=== PATIENT | male | born 1970 | race Caucasian/White ===

== ENCOUNTER 2016-11-06 20:16 | Inpatient (IN) | payer BC, MEDICARE ==
--- NOTE | ~2016-11-06 | OP ---
Record Of Operation [facility] [address] [place]. [address] NAME: EVERT ZEPEDA : 70 STATUS : ADM IN PAT#: [id number] AGE: 46 ADM/REG DATE : 11/06/16 MR#: [id number] REPORT SERV DATE: 11/06/16 DICTATED BY: ALPHONSO CASTRO JR. DATE: 11/06/16 REPORT STATUS : Draft TRANSCRIBED BY: MODVania DATE: 11/06/16 DATE OF PROCEDURE: 11/06/2016 PREOPERATIVE DIAGNOSES: Chronic pain syndrome, multiple previous back fusions, implantation of nerve stimulator, chronic obstructive pulmonary disease with persistent tobacco use, left empyema with trapped lung. POSTOPERATIVE DIAGNOSES: Chronic pain syndrome, multiple previous back fusions, implantation of nerve stimulator, chronic obstructive pulmonary disease with persistent tobacco use, left empyema with trapped lung. NAME OF OPERATION: Bronchoscopy, left thoracoscopy with complete decortication, intercostal nerve block. SURGEON: Alphonso Castro M.D. [employer]: Sharath Curry. ANESTHESIA: [facility]. FINDINGS: The patient was noted to have a parapneumonic effusion with some purulent material in his left chest. This fluid was sent for cultures. We were able to get the lung completely decorticated with good re-expansion. There was a mass in his left lower lobe just at the fissure. It is difficult to tell whether this was an area of pneumonia or an old scar infection or a lung cancer. In this acute setting, we elected not to try to biopsy remove this. He will need a short-term CT scan postoperatively to further evaluate this abnormality. Given all the information it was difficult to tell at this point time. There are no endobronchial lesions other than significant mucus plugs, as expected. DETAILS OF OPERATION: After adequate general anesthesia, the patient was intubated. Bronchoscopy was performed noting no endobronchial masses. There were significant mucous secretions which were evacuated. A left-sided double-lumen endotracheal tube was then placed. The patient was then positioned in the right lateral decubitus position. The left chest was prepped and draped in routine sterile fashion. A small incision was made overlying the lower intercostal space, through the single incision site, the above findings were noted. The fluid loculations were broken up. The fluid was sent for cultures. The lung peel was completely decorticated over the both lobes. In the process there was a firm area in the left lower lobe right at the fissure. This was medially toward the heart. It was difficult to tell whether this was an abscess or an old lung infection. It had more of a chronic nature and was very firm. It did not have the findings of the lung cancer based on just the visceral surface of the lung. Given all the acute inflammation it is difficult to tell. A decision was made not to biopsy remove this. The chest was thoroughly irrigated with multiple liters of normal saline solution. An intercostal nerve block was performed. A 32-Cypriot chest tube was placed. The lung was reinflated. The trocar sites were closed with running Vicryl sutures. The skin was closed with running monofilament suture. A Dermabond dressing was applied. The procedure was terminated at this point. The patient Record Of [address] [place]. [address] NAME: EVERT ZEPEDA : 70 STATUS : ADM IN [facility]#: [id number] AGE: 46 ADM/REG DATE : 11/06/16 MR#: [id number] REPORT SERV DATE: 11/06/16 DICTATED BY: ALPHONSO CASTRO JR. DATE: 11/06/16 REPORT STATUS : Draft TRANSCRIBED BY: MODL DATE: 11/06/16 tolerated the procedure well and taken back to intensive care unit in stable condition. He remained intubated. JACQUELYN/JADE Alphonso Castro Jr., M.D. / [id number] CC: Sarika Lemus Jr., M.D.
--- NOTE | ~2016-11-06 | HP ---
History And Physical [id number] [place]. [address] NAME: EVERT ZEPEDA : 70 STATUS : ADM IN [facility]#: [id number] AGE: 46 ADM/REG DATE : 11/06/16 MR#: [id number] REPORT SERV DATE: 11/07/16 DICTATED BY: ALPHONSO HOLBROOK JR. DATE: 11/06/16 REPORT STATUS : Draft TRANSCRIBED BY: MODVania DATE: 11/06/16 DATE OF ADMISSION: 11/06/2016 BRIEF HISTORY: This 46-year-old male who three days ago began having left-sided chest pain, fevers, and productive cough. He was initially seen in outpatient clinic and treated for pneumonia. The fevers persist, which led to presentation to the hospital, where he was admitted to [facility]. He was noted to have a large left empyema. Thoracentesis was performed demonstrating low pH on the fluid. He is being transferred to [facility] and admitted for a left decortication. PAST MEDICAL HISTORY: Significant for multiple back surgeries along with implantation of a nerve stimulator. He has had previous appendectomy. He has had a previous elbow drain for staph, knee surgery. He has chronic pain syndrome, depression, hypertension, and history of MRSA. MEDICATIONS: Lexapro, Lyrica, methadone, and oxycodone. ALLERGIES: COMPAZINE, CONTRAST MEDIA, IODINE, AND SHELLFISH. SOCIAL HISTORY: The patient smokes at least half pack to one pack per day for the last 30 years. He denies regular alcohol use. FAMILY HISTORY: Significant for congestive heart failure and pneumonia. REVIEW OF SYSTEMS: Significant for the above-mentioned problems in history of present illness. Otherwise, all other systems negative. DATA: White blood cell count 22,000, hemoglobin 11.6, and platelets 467,000. Sodium 136, potassium 5.1, and creatinine 0.86. IMPRESSION: Left empyema with likely trapped lung. PLAN: We will plan on proceeding with urgent left thoracoscopy with decortication. The patient understands that he will likely remain intubated postoperatively. He also will have difficult time given his chronic pain syndrome. Risks, benefits, and expected outcome of the procedure were discussed with the patient. We will proceed on with surgery as soon as possible. HOLLY Alphonso Holbrook Jr., M.D. History And Physical [address] [address] NAME: EVERT ZEPEDA : 70 STATUS : ADM IN PAT#: [id number] AGE: 46 ADM/REG DATE : 11/06/16 MR#: [id number] REPORT SERV DATE: 11/07/16 DICTATED BY: ALPHONSO HOLBROOK JR. DATE: 11/06/16 REPORT STATUS : Draft TRANSCRIBED BY: MICHELLE DATE: 11/06/16 / [id number] CC: Alphonso Holbrook Jr., M.D.
--- NOTE | ~2016-11-06 | DS ---
Discharge Summary [facility] [address] [place]. [address] NAME: EVERT ZEPEDA : 70 STATUS : DIS IN PAT#: [id number] AGE: 46 ADM/REG DATE : 11/06/16 MR#: [id number] REPORT SERV DATE: 11/23/16 DICTATED BY: ALPHONSO CASTRO JR. DATE: 11/22/16 REPORT STATUS : Draft TRANSCRIBED BY: JADE DATE: 11/22/16 Data Collection from hospitalization DISCHARGE DIAGNOSES: 1. Chronic pain syndrome. 2. Multiple previous back fusions. 3. History of implantation of nerve stimulator. 4. Chronic obstructive pulmonary disease. 5. Persistent tobacco use. 6. Left empyema with trapped lung. 7. Hypertension. 8. Depression. 9. History of methicillin-resistant Staphylococcus aureus. CONSULTATION: Dr. Obed [place]. PROCEDURES PERFORMED: Bronchoscopy, left thoracoscopy with complete decortication, intercostal nerve block, 11/06/2016. MEDICATIONS: ProAir two puffs via inhaler as needed, Omnicef 300 mg twice a day, Lexapro 20 mg daily, Levaquin 750 mg daily, methadone 40 mg every 12 hours, Roxicodone 15 mg four times a day as needed, Lyrica 400 mg daily and 200 mg at bedtime, Phenergan 25 mg every six hours as needed, testosterone one dose IM every 21 days as instructed. CONDITION AT DISCHARGE: Stable. DISPOSITION: The patient was discharged home on an 1800-calorie cardiac/diabetic diet with activities as instructed. He would follow up with me, 12/20/2016. HOSPITAL COURSE: This is a 46-year-old man, who about three days prior to this admission began to have chest pain that was left-sided. He also had fever and productive cough. He was initially seen in the outpatient clinic and treated for pneumonia. The fever persisted which led to presentation to the hospital and he had been admitted at [facility]. He was found to have a large left empyema. Thoracentesis demonstrated low pH in the fluid. He was transferred to [facility], and it was felt that he would need to undergo a left decortication. He was admitted at this time for further evaluation and treatment. Upon admission, he was taken to the operating room, where he underwent the above-mentioned procedure. He tolerated this well and there were no complications. On postop day one, he had minimal chest tube output, he had self extubated. Over the next couple of days, his wounds were clean, dry, and intact. He had decreased breath sounds in the bases. He was going to be transferred to the floor. He was seen by Dr. Obed Lake. The patient has a significant history of COPD with tobacco abuse and chronic pain syndrome. He is on a fairly high dose of methadone for pain control at home. He had been transferred from an outside hospital because of a complicated parapneumonic effusion. He underwent a thoracoscopy with good surgical results with good clearance of the complicated parapneumonic effusion. The patient had done relatively well with good oxygenation and good hemodynamics Discharge Summary [address] [address] NAME: EVERT ZEPEDA : 70 STATUS : DIS IN PAT#: [id number] AGE: 46 ADM/REG DATE : 11/06/16 MR#: [id number] REPORT SERV DATE: 11/23/16 DICTATED BY: ALPHONSO CASTRO JR. DATE: 11/22/16 REPORT STATUS : Draft TRANSCRIBED BY: JADE DATE: 11/22/16 afterwards that had quite significant sedation needs. He was now sedated and intubated on the mechanical ventilation. He was felt to have respiratory failure postoperatively with acute hypoxemic respiratory failure requiring intubation. He would remain on the ventilator for now and we would begin weaning efforts. He was on a good amount of sedation and had required a significant amount of fentanyl for comfort. He would be watched very carefully and we would start him on bronchodilator protocol. Discharge planning was performed. On 11/09/2016, chest x-ray showed no pneumothorax. There was some left basilar atelectasis. Cultures were pending. His wounds were clean, dry, and intact. His chest tube was discontinued. Discharge instructions were given. Due to his improved and stable condition, he was discharged home with the above-stated instructions. Information collected by: Sylvie Puga I submit the above information as my discharge summary. TAHIRA/JADE Alphonso Castro Jr., M.D. / [id number] CC: Sarika Lemus Jr., M.D.
--- NOTE | ~2016-11-06 | CN ---
Consultation Report [facility] [address] [place]. [address] NAME: EVERT DE LA GARZA : 70 STATUS : ADM IN PAT#: [id number] AGE: 46 ADM/REG DATE : 11/06/16 MR#: [id number] REPORT SERV DATE: 11/07/16 DICTATED BY: LISBETH HOGUE DATE: 11/07/16 REPORT STATUS : Draft TRANSCRIBED BY: MODL DATE: 11/07/16 CONSULTATION DATE OF CONSULTATION: Thank you for the opportunity to consult on this patient. I have discussed the case briefly with Dr. Ashish Castro after his surgery. HISTORY OF PRESENT ILLNESS: Mr. De La Garza is a 46-year-old man with significant history of COPD with tobacco abuse and chronic pain syndrome, on fairly high dose of methadone for pain control at home. He was transferred from an outside hospital because of a complicated parapneumonic effusion. He underwent thoracoscopy with good surgical results with good clearance of the complicated parapneumonic effusion. Reportedly, there was not as much pus. It is again just significant amount of fluid with adhesions. The patient did relatively well with good oxygenation and good hemodynamics afterwards, but had quite significant sedation needs. He is now sedated and intubated on mechanical ventilation. PAST MEDICAL HISTORY: Significant for chronic pain syndrome, on fairly high dose of methadone at home, tobacco abuse, chronic back pain. REVIEW OF SYSTEMS: I could not obtain review of 10 systems since he is intubated and sedated on mechanical ventilation. PHYSICAL EXAMINATION: GENERAL: He is sedated on the ventilator, in no acute respiratory distress. VITAL SIGNS: Heart rate 62 with blood pressure 110/60 and oxygen saturation was 98% on the ventilator. HEENT: Normocephalic and atraumatic. NECK: Supple. No lymphadenopathy and no JVD. CHEST: Symmetric with good expansion bilaterally. His lungs actually sound pretty good this morning. CARDIOVASCULAR: He has S1 and S2, which are regular in rate and rhythm. ABDOMEN: Benign. EXTREMITIES: He has no edema, no clubbing, no cyanosis. ASSESSMENT AND PLAN: Respiratory failure. The patient has postoperative respiratory failure, acute hypoxemic respiratory failure requiring intubation and will remain on the ventilator for now, though we will start weaning efforts. He is on good amount of sedation now and has required a significant amount of fentanyl for comfort, so therefore will need to be watched very carefully and we will start him on bronchodilator protocol. We appreciate the opportunity to participate in his care with you. Please do not hesitate to contact me if I could be of any further assistance. Consultation Report [id number] [address] [address] NAME: EVERT DE LA GARZA : 70 STATUS : ADM IN PAT#: [id number] AGE: 46 ADM/REG DATE : 11/06/16 MR#: [id number] REPORT SERV DATE: 11/07/16 DICTATED BY: LISBETH HOGUE DATE: 11/07/16 REPORT STATUS : Draft TRANSCRIBED BY: JADE DATE: 11/07/16 CB/JADE Lisbeth Hogue M.D. / [id number] CC: Hola Castro Jr., M.D.
[2016-11-06 20:45] LABS: BASOPHILS 0.2 %; BASOPHILS ABSOLUTE 0.05 10/3/uL (0.0-0.16); EOSINOPHILS 0.6 %; EOSINOPHILS ABSOLUTE 0.14 10/3/uL (0.0-0.53); HEMATOCRIT 32.2 % (40.0-51.0); HEMOGLOBIN 10.5 g/dL (13.6-17.8); IMMATURE GRANULOCYTES 0.7 %; IMMATURE GRANULOCYTES ABSOLUTE 0.16 10/3/uL (0.0-0.11); LYMPHOCYTES 6.6 %; LYMPHOCYTES ABSOLUTE 1.49 10/3/uL (0.67-4.30); MEAN PLATELET VOLUME 8.4 fL (9.2-13.0); MONOCYTES 9.3 %; MONOCYTES ABSOLUTE 2.09 10/3/uL (0.21-1.20); NEUTROPHILS 82.6 %; NEUTROPHILS ABSOLUTE 18.61 10/3/uL (2.02-8.40); RED CELL COUNT 3.67 10/6/uL (4.7-6.1)
[2016-11-06 20:47] LABS: MANUAL DIFF NO %; MEAN CORPUS HGB CONC 32.6 g/dL (32.0-36.0); MEAN CORPUSCULAR HEMOGLOB 28.6 pg (26.0-34.0); MEAN CORPUSCULAR VOLUME 87.7 fL (80-100); PLATELET COUNT 431 10/3/uL (150-400); WHITE BLOOD CELLS 22.5 10/3/uL (4.5-10.5)
[2016-11-06 20:55] LABS: INTERNATIONAL NORMAL RATI 1.3 UNITS (-)
[2016-11-06 20:59] LABS: PROTIME (NOT ORD) 16.3 SEC (12.0-14.5)
[2016-11-06 21:01] LABS: A/G RATIO 0.6 (0.7-1.9); ALBUMIN 2.3 G/DL (3.5-5.0); ALKALINE PHOSPHATASE 94 U/L (45-117); BUN (BLOOD UREA NITROGEN) 10 MG/DL (6-23); CALCIUM, SERUM 8.1 MG/DL (8.5-10.4); CHLORIDE, SERUM 102 MMOL/L (96-112); CO2 (CARBON DIOXIDE) 30 MMOL/L (24-34); CREATININE 0.71 MG/DL (0.70-1.30); GFR AFRICAN AMERICAN 130 ML/MIN (>=60); GFR NON AFRICAN AMERICAN 113 ML/MIN (>=60); GLOBULIN 3.9 G/DL (2.5-4.1); GLUCOSE, SERUM 117 MG/DL (60-99); POTASSIUM, SERUM 4.3 MMOL/L (3.5-5.3); SGOT(AST) 10 U/L (5-40); SGPT(ALT) 24 U/L (5-65); SODIUM, SERUM 138 MMOL/L (135-148); TOTAL BILIRUBIN 0.3 MG/DL (0-1.2); TOTAL PROTEIN 6.2 G/DL (6.0-8.5)
[2016-11-06 23:15] LABS: BE (BASE EXCESS) 4.7 MEQ/L (0 +/- 2.5); CARBOXYHEMOGLOBIN 0.3 % (0-3); HCO3 (ACTUAL BICARBONATE) 32.1 MEQ/L (23-27); HEMOBLOGIN CONTENT 11.6 G/DL (14-18); INSTRUMENT SERIAL # 11843; METHEMOGLOBIN 0.6 % (0-3); MODE CMV; O2 CONTENT 16.6 VOL% (18-24); OPERATOR ID 13415; PCO2 (CO2 TENSION) 63 MMHG (35-45); PO2 (O2 TENSION) 238 MMHG (79-93); SAMPLE Arterial; TIDAL VOLUME 700 ML; pH 7.33 (7.37-7.43)
[2016-11-07 01:00] LABS: HEMATOCRIT 32.6 % (40.0-51.0); HEMOGLOBIN 10.7 g/dL (13.6-17.8); MEAN CORPUS HGB CONC 32.8 g/dL (32.0-36.0); MEAN CORPUSCULAR HEMOGLOB 29.1 pg (26.0-34.0); MEAN CORPUSCULAR VOLUME 88.6 fL (80-100); MEAN PLATELET VOLUME 8.7 fL (9.2-13.0); PLATELET COUNT 417 10/3/uL (150-400); RBC DISTRIBUTION WIDTH 17.2 % (12.0-16.0); RED CELL COUNT 3.68 10/6/uL (4.7-6.1); WHITE BLOOD CELLS 24.7 10/3/uL (4.5-10.5)
[2016-11-07 01:01] LABS: MANUAL DIFF YES %
[2016-11-07 01:16] LABS: ANISOCYTOSIS 1+ (5-10/OIF) (0-5/OIF); BAND NEUTROPHILS 2 %; BASOPHILS 1 %; BASOPHILS ABSOLUTE (CALC) 0.25 10/3/uL (0.0-0.16); EOSINOPHILS 1 %; EOSINOPHILS ABSOLUTE (CALC) 0.25 10/3/uL (0.0-0.53); LYMPHOCYTES 4 %; LYMPHOCYTES ABSOLUTE (CALC) 0.99 10/3/uL (0.67-4.30); MONOCYTES 8 %; MONOCYTES ABSOLUTE (CALC) 1.98 10/3/uL (0.21-1.20); NEUTROPHILS ABSOLUTE (CALC) 21.24 10/3/uL (2.02-8.40); PLATELET ESTIMATE SLT INC (ADEQUATE); SEGMENTED NEUTROPHIL (0) 84 %; TOTAL NUCLEATED CELLS 100
[2016-11-07 01:18] LABS: BUN (BLOOD UREA NITROGEN) 9 MG/DL (6-23); CALCIUM, SERUM 7.6 MG/DL (8.5-10.4); CHLORIDE, SERUM 103 MMOL/L (96-112); CO2 (CARBON DIOXIDE) 32 MMOL/L (24-34); GFR AFRICAN AMERICAN 131 ML/MIN (>=60); GFR NON AFRICAN AMERICAN 113 ML/MIN (>=60); POTASSIUM, SERUM 4.9 MMOL/L (3.5-5.3); SODIUM, SERUM 134 MMOL/L (135-148)
[2016-11-07 01:19] LABS: GLUCOSE, SERUM 141 MG/DL (60-99)
[2016-11-07 03:55] LABS: ALLENS TEST Pos; BE (BASE EXCESS) 3.9 MEQ/L (0 +/- 2.5); CARBOXYHEMOGLOBIN 0.6 % (0-3); HCO3 (ACTUAL BICARBONATE) 28.3 MEQ/L (23-27); INSTRUMENT SERIAL # 11843; METHEMOGLOBIN 0.5 % (0-3); MODE CMV; O2 CONTENT 16.3 VOL% (18-24); OPERATOR ID 13415; PCO2 (CO2 TENSION) 42 MMHG (35-45); PO2 (O2 TENSION) 90 MMHG (79-93); SAMPLE Arterial; TIDAL VOLUME 700 ML; pH 7.45 (7.37-7.43)
[2016-11-07] MEDS ORDERED: METHATAB40 PO ×2 (08:15→17:42)
[2016-11-07] MEDS ORDERED: LEXAPRO20 PO ×2 (08:20→17:41)
[2016-11-07] MEDS ORDERED: LYRICA200 MG PO ×4 (08:21→20:12)
[2016-11-07] MEDS ORDERED: PR25 PO ×2 (08:22→17:42)
[2016-11-07] MEDS ORDERED: ROXICODONE15 MG PO ×2 (08:22→17:42)
[2016-11-07 10:48] LABS: HEMATOCRIT 34.2 % (40.0-51.0); MEAN CORPUS HGB CONC 32.2 g/dL (32.0-36.0); MEAN CORPUSCULAR HEMOGLOB 28.8 pg (26.0-34.0); MEAN CORPUSCULAR VOLUME 89.5 fL (80-100); MEAN PLATELET VOLUME 8.8 fL (9.2-13.0); PLATELET COUNT 430 10/3/uL (150-400); RBC DISTRIBUTION WIDTH 17.1 % (12.0-16.0); RED CELL COUNT 3.82 10/6/uL (4.7-6.1); WHITE BLOOD CELLS 23.8 10/3/uL (4.5-10.5)
[2016-11-07 10:50] LABS: MANUAL DIFF YES %
[2016-11-07 10:58] LABS: BUN (BLOOD UREA NITROGEN) 11 MG/DL (6-23); CALCIUM, SERUM 8.5 MG/DL (8.5-10.4); CHLORIDE, SERUM 103 MMOL/L (96-112); CO2 (CARBON DIOXIDE) 30 MMOL/L (24-34); CREATININE 0.85 MG/DL (0.70-1.30); GFR AFRICAN AMERICAN 121 ML/MIN (>=60); GFR NON AFRICAN AMERICAN 104 ML/MIN (>=60); SODIUM, SERUM 138 MMOL/L (135-148)
[2016-11-07 10:59] LABS: GLUCOSE, SERUM 201 MG/DL (60-99)
[2016-11-07 11:18] LABS: BAND NEUTROPHILS 8 %; IMMATURE GRANS ABSOLUTE (CALC) 0.48 10/3/uL (0.0-0.11); LYMPHOCYTES 1 %; LYMPHOCYTES ABSOLUTE (CALC) 0.24 10/3/uL (0.67-4.30); METAMYELOCYTES 2 %; MONOCYTES 2 %; MONOCYTES ABSOLUTE (CALC) 0.48 10/3/uL (0.21-1.20); NEUTROPHILS ABSOLUTE (CALC) 22.61 10/3/uL (2.02-8.40); SEGMENTED NEUTROPHIL (0) 87 %; TOTAL NUCLEATED CELLS 100
[2016-11-07 11:19] LABS: ANISOCYTOSIS 1+ (5-10/OIF) (0-5/OIF); MACROCYTES 1+ (5-10/OIF) (0-5/OIF); PLATELET ESTIMATE SLT INC (ADEQUATE)
[2016-11-07 11:20] LABS: TOXIC GRANULATION 1+
[2016-11-07] MEDS ORDERED: PROAIR HFA INH (17:43)
[2016-11-07] MEDS ORDERED: TESTOSTERONE IM (17:43)
[2016-11-07] MEDS ORDERED: OMNICEF300 PO (17:43)
[2016-11-08 04:43] LABS: BASOPHILS 0.1 %; BASOPHILS ABSOLUTE 0.02 10/3/uL (0.0-0.16); EOSINOPHILS 1.3 %; EOSINOPHILS ABSOLUTE 0.22 10/3/uL (0.0-0.53); HEMATOCRIT 28.8 % (40.0-51.0); HEMOGLOBIN 9.4 g/dL (13.6-17.8); IMMATURE GRANULOCYTES 0.6 %; IMMATURE GRANULOCYTES ABSOLUTE 0.11 10/3/uL (0.0-0.11); LYMPHOCYTES 11.9 %; LYMPHOCYTES ABSOLUTE 2.06 10/3/uL (0.67-4.30); MANUAL DIFF NO %; MEAN CORPUS HGB CONC 32.6 g/dL (32.0-36.0); MEAN CORPUSCULAR HEMOGLOB 28.7 pg (26.0-34.0); MEAN CORPUSCULAR VOLUME 87.8 fL (80-100); MEAN PLATELET VOLUME 8.6 fL (9.2-13.0); MONOCYTES 5.7 %; MONOCYTES ABSOLUTE 0.98 10/3/uL (0.21-1.20); NEUTROPHILS 80.4 %; NEUTROPHILS ABSOLUTE 13.93 10/3/uL (2.02-8.40); PLATELET COUNT 414 10/3/uL (150-400); RBC DISTRIBUTION WIDTH 17.2 % (12.0-16.0); RED CELL COUNT 3.28 10/6/uL (4.7-6.1); WHITE BLOOD CELLS 17.3 10/3/uL (4.5-10.5)
[2016-11-08 04:51] LABS: CALCIUM, SERUM 8.2 MG/DL (8.5-10.4); CHLORIDE, SERUM 103 MMOL/L (96-112); CO2 (CARBON DIOXIDE) 30 MMOL/L (24-34); CREATININE 0.79 MG/DL (0.70-1.30); GFR AFRICAN AMERICAN 125 ML/MIN (>=60); GFR NON AFRICAN AMERICAN 108 ML/MIN (>=60); PHOSPHORUS, SERUM 2.9 MG/DL (2.5-4.5); SODIUM, SERUM 137 MMOL/L (135-148)
[2016-11-08 04:52] LABS: BUN (BLOOD UREA NITROGEN) 17 MG/DL (6-23); GLUCOSE, SERUM 160 MG/DL (60-99); POTASSIUM, SERUM 3.9 MMOL/L (3.5-5.3)
[2016-11-09] MEDS ORDERED: LEVAQUIN750 MG PO (09:20)
== END 2016-11-09 12:07 | disposition home or self-care (01) | DRG 163 ==
LOC: SDC/OF 20:16 → CVICU 22:53 → 5NO 11-08 17:32
PROVIDERS: Thoracic Surgery (Cardiothoracic Vascular Surgery)
PROC: 3E0T3BZ Introduction of Anesthetic Agent into Peripheral Nerves and Plexi, Percutaneous Approach (ICD-10-PCS; 2016-11-06)
PROC: 0BDP4ZZ Extraction of Left Pleura, Percutaneous Endoscopic Approach (ICD-10-PCS; principal; 2016-11-06 21:00)
PROC: 0BJ08ZZ Inspection of Tracheobronchial Tree, Via Natural or Artificial Opening Endoscopic (ICD-10-PCS; 2016-11-06 21:00)
DX: J86.9 Pyothorax without fistula (principal); J95.821 Acute postprocedural respiratory failure; J98.11 Atelectasis; J44.9 Chronic obstructive pulmonary disease, unspecified; G89.4 Chronic pain syndrome; Z79.891 Long term (current) use of opiate analgesic; F17.210 Nicotine dependence, cigarettes, uncomplicated
CPT/HCPCS: 31720; 36415; 36569-52; 36600; 71010; 71020; 80048; 80053; 82805; 82962; 83036; 83735; 84100; 85025; 85610; 86850; 86900; 86901; 86920; 87015; 87070; 87075; 87102; 87116; 87205; 87641; 93005; 94002; 94640; 94770; A9270-GY; J0690; J1170; J1885; J2250; J2370; J2405; J2543; J3010; P9045